=== PATIENT | male | born 1980 | race Caucasian/White ===

== ENCOUNTER 2021-01-19 09:57 | Emergency (ER) | payer SELFPAY ==
[~2021-01-19] VITALS: Ht 182.9 cm; Wt 84.8 kg
--- NOTE | 2021-01-19 10:15 | NUR ---
patient came in to the er c/o right foot pain x 2 days, 10/10 pain scale. On room air, breathing evenly and unlabored. Kept comfortable, will continue to monitor accordingly.
[2021-01-19] MEDS ORDERED: DEXAMETHASONE SOD PHOSPHATE 10 MG/ML VIAL IM ONE (11:00)
[2021-01-19] MEDS ORDERED: KETOROLAC TROMETHAMINE INJ 60 MG/2 ML VIAL IM ONE ×2 (11:00→11:02)
[2021-01-19] MEDS ORDERED: DEXAMETHASONE SOD PHOSPHATE 10 MG/ML VIAL ONE (11:02)
[2021-01-19] MEDS ORDERED: INDO50CA92 PO (11:14)
[2021-01-19] MEDS ORDERED: METH4TAB3 PO (11:14)
[2021-01-19 11:33] VITALS: BP 110/66
--- NOTE | 2021-01-19 11:33 | NUR ---
Patient discharged to home in stable condition. Written and verbal after care instructions given. Patient verbalizes understanding of instruction.
== END 2021-01-19 11:33 | disposition home or self-care (01) ==
LOC: ER 10:04
DX: M19.071 Primary osteoarthritis, right ankle and foot (principal); M10.9 Gout, unspecified; Z79.899 Other long term (current) drug therapy
CPT/HCPCS: 73630; 96372 ×2; 99284; J1100; J1885